=== PATIENT | male | born 1960 | race Caucasian/White ===

== ENCOUNTER 2018-12-05 17:09 | Emergency (ER) | payer OTHER ==
[~2018-12-05] VITALS: Ht 180.3 cm; Wt 79.4 kg
[~2018-12-05 17:09] MED LIST: DEPAKOTE ER500 MG; KLONOPIN1 MG/TAB; SYMBYAX 6-251 UDCAP
[2018-12-05] MEDS ORDERED: PAXIL20 MG (17:35)
[2018-12-06] MEDS ORDERED: LUNESTA1 MG (12:10)
[2018-12-06] MEDS ORDERED: CLONAZEPAM0.5 MG PO (12:39)
== END 2018-12-05 22:43 | disposition home or self-care (01) ==
LOC: ER 17:09
DX: R00.2 Palpitations (principal); F06.4 Anxiety disorder due to known physiological condition

== ENCOUNTER 2018-12-06 10:23 | Emergency (ER) | payer OTHER ==
[~2018-12-06] VITALS: Ht 180.3 cm; Wt 79.4 kg
[~2018-12-06 10:23] MED LIST changes: +PAXIL20 MG
[2018-12-06] MEDS ORDERED: LUNESTA1 MG (12:10)
[2018-12-06] MEDS ORDERED: CLONAZEPAM0.5 MG PO (12:39)
== END 2018-12-06 12:44 | disposition home or self-care (01) ==
LOC: ER 10:23
DX: F06.4 Anxiety disorder due to known physiological condition (principal)

== ENCOUNTER 2025-03-15 10:44 | Emergency (ER) | payer OTHER ==
[~2025-03-15] VITALS: Ht 180.3 cm; Wt 88.5 kg
[~2025-03-15 10:44] MED LIST changes: +CLONAZEPAM0.5 MG PO; +LUNESTA1 MG
[2025-03-15] MEDS ORDERED: CLONAZEPAM 1 MG TABLET PO ONE (11:30)
[2025-03-15] MEDS ORDERED: DIVALPROEX SODIUM 500 MG TABLET.DR PO ONE (11:30)
[2025-03-15] MEDS ORDERED: DEXAMETHASONE SODIUM PHOSPHATE 4 MG/ML VIAL IV ONE (11:30)
[2025-03-15] MEDS ORDERED: DEXAMETHASONE SODIUM PHOSPHATE 4 MG/ML VIAL ONE (11:40)
[2025-03-15 11:46] LABS: BASO % 0.4 % (0.1-1.2); EOS # 0.09 (0.04-0.54); EOS % 1.3 % (0.7-7.0); LYMPH # 1.63 (1.18-3.74); LYMPH % 23.2 % (19.3-53.1); MEAN PLATELET VOLUME 10.70 fl (9.4-12.4); MONO # 0.97 (0.24-0.82); NEUT # 4.30 (1.56-6.13); NEUT % 61.0 % (34.0-71.1); RED CELL DISTRIBUTION WIDTH 13.6 % (11.6-14.4)
[2025-03-15 11:47] LABS: MONO % 13.8 % (4.7-12.5)
[2025-03-15 12:46] LABS: ALT/SGPT 39.0 U/L (12-78); AST/SGOT 24.0 U/L (15-37); BILIRUBIN TOTAL 0.56 mg/dL (0.3-1.2); BUN CREA RATIO 10.0 (7.0-25.0); CREATININE SERUM 0.78 mg/dL (0.70-1.30); GFR 99.89; GLOBULINA 3.2 G/DL (2.4-3.5); GLUCOSE FASTING 159.0 mg/dL (65-100); OSMOLALITY SERUM 277.0 MOSM/KG (275-295)
[2025-03-15 13:50] VITALS: BP 98/72; O2SAT 97
== END 2025-03-15 13:52 | disposition home or self-care (01) ==
LOC: ER 10:44
PROVIDERS: General Practice
DX: M94.0 Chondrocostal junction syndrome [Tietze] (principal); F41.9 Anxiety disorder, unspecified
CPT/HCPCS: 36415; 93005; 96365; 99282; J1100